=== PATIENT | male | born 1975 | race Caucasian/White ===

== ENCOUNTER 2021-10-08 01:05 | Day surgery (SDC) | payer OTHER, SELFPAY ==
[2021-09-30 14:47] VITALS: BMI 23.6
--- NOTE | 2021-09-30 14:52 | NBADM ---
Report to the Outpatient Waiting Room, entrance under the green pavilion located off [facility], at time __1100__ on date _10/08/21__. OR Time: _1300___. - You and your visitor will be asked a series of questions to screen for COVID 19 for your protection. - Only one visitor is allowed at this time. - The patient visitor is requested to leave or wait in car when not with patient. - A mask is required within the hospital. Patients may have clear liquids (water, carbonated beverages, clear teas, apple juice) until 3 hours prior to surgery with a maximum of 20 ounces. - No food from midnight until time of surgery - Infants may have breast milk until 4 hours before surgery, infant formula 6 hours prior to surgery. - Children will be allowed to drink immediately following surgery. If applicable, please bring a bottle or sippy cup to assist with drinking. Juice, water, soda, and popsicles are readily available. For infants on formula, please bring formula the day of surgery. Pacifiers are allowed. Take the following medications with a SIP of water the morning of surgery: _BUPROPION Medications to discontinue per physician NONE Date to take last dose Please no make-up, nail lao, hairspray, perfume, deodorant, or body powder the day of surgery. No jewelry (including any body piercings) or valuables the day of surgery, leave them at home. Please take a shower or bath the night before, or the morning of, surgery with an antibacterial soap. Wear comfortable, loose fitting clothing. Children are encouraged to wear pajamas. - Jewelry must be removed prior to entering the operating room. Rings and piercings that are not removed may be cut off. - The hospital will not accept responsibility for valuables. - Please leave all valuables, including medications, at home the day of surgery. If you are going home after surgery, a licensed subway train driver must drive you home. - NO public transportation without another adult. - We recommend that an adult stay with you for 24 hours following discharge. - We also recommend that you do not drive, make important decision, drink alcoholic beverages, or take any drugs that were not prescribed by your health care provider for at least 24 hours after your discharge time. For Pediatric surgeries, we recommend two adults accompany the child home (only one inside the building at this time). Follow any additional instructions given to you from your surgeon. If you or anyone in your household have experienced Covid symptoms in the past week, please notify your surgeon or the nurse liaison at the phone number below for possible testing. Telephone instructions given to __PATIENT_and asked if any additional questions and then verbalized understanding. Patient advised to call surgeon office or pre surgery nurse liaison [phone] if any additional questions.
[2021-10-08] VITALS (8 sets, daily range): BP systolic 101–120; BP diastolic 57–82; PULSE 54–73; RESP 12–16; TEMP 36.8; O2SAT 99
[2021-10-08] MEDS: ACETAMINOPHEN 500 MG TABLET 1000 MG PO (11:11)
[2021-10-08] MEDS: LACTATED RINGERS 1,000 ML 30 ML IV CONT ×3 (11:38→16:08)
[2021-10-08] MEDS: KETOROLAC 15 MG/ML VIAL (*BKC) IV PUSH (11:41)
--- NOTE | 2021-10-08 11:57 | P.PNAN_ITS ---
Anes - Initial Pre Proc Eval Procedure: Operation Date: 10/08/21 13:00 Proposed Procedures p Right Inguinal Hernia Repair with Mesh - Keith Cummings MD s Bilateral Vasectomy - Monster Mac MD Date/Time: 10/08/21 11:57 Surgeon: Keith Cummings MD Pre Op Diagnosis: right inguinal hernia, sterilization Patient Data Age: 46 Gender: M Height: 1.8 m Weight: 75.2 kg Allergies Allergy/AdvReac Type Severity Reaction Status Date / Time No Known Drug Allergies Allergy Unknown Unknown Verified 10/08/21 11:05 Home Medications Medication Instructions Recorded Confirmed Type sildenafil (pulm.hypertension) 20 20 mg PO DAILY PRN sexual activity 01/27/19 09/30/21 History mg tablet bupropion HCl 150 mg 24 hr tablet, 150 mg PO QAM #90 tabs 05/12/21 10/08/21 Rx extended release omeprazole 40 mg capsule,delayed 40 mg PO DAILY 09/30/21 10/08/21 History release Patient hx anesthesia problems: none Family hx anesthesia problems: none Results Review: All pre-operative results and documents have been reviewed as part of the pre- operative evaluation. 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 Alcohol intake: current Drinks per week: 3 Substance use: never Substance use type: does not use Living arrangements: with family Gender identity (if verbalized by the patient): Male Anes - Eval Final PreProcedure Day of Procedure 10/08/21 11:57 Patient weight: overweight Heart: regular rate and rhythm Lungs: clear to auscultation and normal air movement Airway: Mallampati scale class II Neurological: alert and oriented Last oral intake: >/= 8 hours ASA classification: II Emergent: no Anesthetic plan: proceed Anesthesia type and monitoring: general GIVS Results Review: All pre-operative results and documents have been reviewed as part of the pre- operative evaluation. Informed Consent: The patient's anesthetic plan and its attendant risks and benefits were discussed with the patient/family/POA. Questions were solicited and answers provided to the satisfaction of the patient/family/POA.
--- NOTE | 2021-10-08 12:25 | WPDHPUPDATE1 ---
History and Physical Update Update Date/Time: 10/08/21 12:25 History and Physical has been reviewed, including an updated exam of the patient. There are NO changes in the patient's condition. Risks, benefits, and alternatives have been discussed and questions answered. Patient agrees to proceed with procedure.
--- NOTE | 2021-10-08 12:41 | WPDHPUPDATE1 ---
History and Physical Update Update Date/Time: 10/08/21 12:41 History and Physical has been reviewed, including an updated exam of the patient. There are NO changes in the patient's condition. Risks, benefits, and alternatives have been discussed and questions answered. Patient agrees to proceed with procedure.
--- NOTE | 2021-10-08 13:08 | PM.IMHP ---
H&P: HPI History of Present Illness Date/Time: 10/08/21 13:08 Chief Complaint: Desire for sterility [facility] Past Medical History Medical History (Updated 09/15/21 @ 10:30 by Fatmata Lee) Chronic GERD Depression Family History Family History Father Family history of malignant neoplasm unknown Cancer Sibling Family history of malignant neoplasm of brain Social History Social History Smoking packs per day: 0.25 Smoking cigarettes per day: 5.0 Years smoked: 7 Smoking pack-years: 1.75 Smoking status: Former smoker Tobacco type: cigarettes Second hand tobacco smoke exposure: No Smoking end date: 03/22/01 Additional smoking assessment comments: 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 Alcohol intake: current Drinks per week: 3 Substance use: never Substance use type: does not use Living arrangements: with family Gender identity (if verbalized by the patient): Male Meds Home Medications and Allergies Home Medications Medication Instructions Recorded Confirmed Type sildenafil (pulm.hypertension) 20 20 mg PO DAILY PRN sexual activity 01/27/19 09/30/21 History mg tablet bupropion HCl 150 mg 24 hr tablet, 150 mg PO QAM #90 tabs 05/12/21 10/08/21 Rx extended release omeprazole 40 mg capsule,delayed 40 mg PO DAILY 09/30/21 10/08/21 History release Allergies Allergy/AdvReac Type Severity Reaction Status Date / Time No Known Drug Allergies Allergy Unknown Unknown Verified 10/08/21 11:05 Vital Signs Vital Signs - 24 hr 10/08/21 11:15 Temperature 36.8 C Pulse Rate 73 Respiratory Rate 16 Blood Pressure 115/82 Pulse Oximetry 99 Oxygen Delivery Room Air Exam Narrative: The patient is awake and alert no acute distress. abdomen soft and nondistended. Patient with normal phallus and bilateral descended testis. The vas deferens are palpable bilaterally Assessment and Plan Assessment and plan (1) Request for sterilization: Code(s): Z30.2 - Encounter for sterilization Status: Acute Assessment and Plan: Patient and his do not desire children. He is here for elective sterilization with a bilateral vasectomy, coordinated with timing of hernia repair by Dr. Cummings
[2021-10-08] MEDS: ceFAZolin 2 GM/D5W 50 ML 2 GM/50 ML BAG IVPB (13:13)
[2021-10-08] MEDS: BUPIVACAINE HCL 0.5% PF 30 ML VIAL INFILTRATE (13:40)
--- NOTE | 2021-10-08 13:49 | W.PM.PROC2 ---
Procedure Note - Detailed Date of Procedure 10/08/21 Pre-op Diagnosis sterilization Post-op Diagnosis Same Procedure Performed Bilateral vasectomy Surgeon Monster Mac MD Description of Procedure Informed consent was obtained. Patient taken aspirin. He was prepped and draped in normal sterile fashion after induction of anesthesia. Marcaine was injected in the midline scrotal raphae. We then used the no scalpel technique to grasp the left vas deferens. We then a 2cm portion of the vas, the ends cauterized and then tied with a 3-0 chromic suture.? A fascial interposition was then performed the 2 ends of the vas.? An identical vasectomy was performed on the contralateral side.? The excised portion of vas was sent to pathology. We then irrigated. As the skin opening was small we did not place any sutures. Dressing will be placed with Neosporin after completion of the hernia repair with Dr. Cummings. Pathology Yes Condition Stable Disposition PACU
[2021-10-08] MEDS: BUPIVACAINE/EPINEPHRINE 0.25% 50 ML VIAL 30 ML INFILTRATE (14:03)
--- NOTE | 2021-10-08 14:43 | W.PM.PROC2 ---
Procedure Note - Detailed Date of Procedure 10/08/21 Pre-op Diagnosis right inguinal hernia Post-op Diagnosis Same Procedure Performed Right inguinal hernia repair with large PerFix Light hernia mesh plug and patch Surgeon Keith Cummings MD [facility] Assistant Director Rachel FISCHER Anesthesia General (G IV S) and Local (0.25% Marcaine with epinephrine) Indications The patient is noted to have a symptomatic reducible right inguinal hernia on exam. He also desires elective sterilization. He had a vasectomy per Dr. Salazar and under the same anesthetic, we are now proceeding with repair of his right inguinal hernia. Findings Patient had an indirect right inguinal hernia. No direct hernia was noted. Description of Procedure Patient was taken to surgery and Dr. Salazar proceeded with vasectomy. Patient was then re-prepped and draped for inguinal hernia under the same anesthetic. Proposed incision was marked on the skin in the right inguinal region. Local anesthesia was infiltrated into the skin and the deeper subcutaneous tissues. Incision was made and dissection was carried down through the subcutaneous. Crossing veins were cauterized and divided. We dissected through Vinh's fascia and to the external oblique aponeurosis. The aponeurosis was exposed as was the external ring. Additional local was infiltrated deep to the aponeurosis. The aponeurosis was opened laterally and extended medially through the external ring. Care was taken to avoid injury to the ilioinguinal nerve. The nerve was left attached to the cord and preserved through surgery. We freed the leaves of the aponeurosis from the underlying inguinal canal contents. The cord was then mobilized medially on a Trade drain. Cord was mobilized back to the internal ring as well. Dissection was carried out in the anteromedial spermatic cord. The hernia sac was found and was carefully dissected free of the cord structures. The sac was dissected back to a high dissection. It was dunked into the retroperitoneum. The large PerFix plug light was placed in the indirect defect. The edges were sutured to the transversalis fascia with interrupted 3-0 Vicryl suture. The patch was then cut to the appropriate size. It was placed on the inguinal canal floor with the lateral leaves passing beyond the cord on either side. The 1st piece of Xaracoll was then placed over the hernia mesh. The cord was then laid over the Xaracoll. The external oblique aponeurosis was closed with interrupted 3-0 Vicryl suture. A 2nd piece of Xaracoll was placed over the aponeurosis. Vinh's fascia was then closed with interrupted 3-0 Vicryl suture. The last piece of Xaracoll was placed in the subcutaneous. The skin was loosely approximated with subcuticular interrupted 4-0 Vicryl suture. Skin was finally closed with a running 4-0 Monocryl skin suture. The wound was dressed with Exofin surgical adhesive. The patient was awakened and taken to outpatient surgery in good condition. Sponge and needle counts were correct x2. Implants Large PerFix Light plug and patch, Xaracoll Estimated Blood Loss -5 Drains No Packing No Pathology None sent Complications No immediate complications Condition Stable Disposition Same day [facility] Billing Surgery - Charge Forward: Surgery Billing (Right inguinal hernia repair)
--- NOTE | 2021-10-14 08:17 | PC.NURSE ---
ASSESSMENT FROM 09/30/21 SHOULD BE LABELED PRE OP INSTRUCTION SHEET.
== END 2021-10-08 17:45 | disposition home or self-care (01) ==
PROVIDERS: Urology; PCP Family Medicine; Visit Provider Surgery
PROC: (CPT 49505; principal; 2021-10-08 13:00)
PROC: (CPT 55250; 2021-10-08 13:00)
DX: Z30.2 Encounter for sterilization (principal); K40.90 Unilateral inguinal hernia, without obstruction or gangrene, not specified as recurrent; K21.9 Gastro-esophageal reflux disease without esophagitis; F32.A Depression, unspecified; Z87.891 Personal history of nicotine dependence
CPT/HCPCS: 55250; 49505; 88300; A9270; C1781; J0690; J1885; J2250; J2704; J3010; J7120